=== PATIENT | female | born 1990 | race Caucasian/White ===

== ENCOUNTER 2017-02-23 14:16 | Emergency (ER) | payer OTHER ==
[~2017-02-23] VITALS: Ht 177.8 cm; Wt 61.5 kg
[2017-02-23 14:44] VITALS: BP 168/102; PULSE 77; RESP 16; TEMP 98.2; O2SAT 99
--- NOTE | 2017-02-23 16:50 | PD ---
HPI Chief Complaint: Injury Time Seen by Provider: 16:30 Travel History International Travel<30 days: No Contact w/Intl Traveler<30days: No Traveled to known affect area: No History of Present Illness HPI 27-year-old female presents to the emergency room for evaluation of left foot pain, swelling, and bruising after injuring it 2 days ago. Patient states she slipped while walking up the stairs. She inverted her ankle and has had pain to the left lateral foot since then. No other injuries. She has been able to ambulate on it. She has been taking Tylenol and Motrin without any relief in symptoms. No chronic medical conditions or daily medications. She started getting paresthesias to her left leg a few hours ago. [facility] Past Medical History Medical History: Denies Significant Hx ?: Not LMP: 1 WEEK AGO Social History Alcohol Use: Yes (occ) Tobacco Use: No Substance Use: No Allergies-Medications (Allergen,Severity, Reaction): Coded Allergies: No Known Allergies (Verified Allergy, Unknown, 02/23/17) Reported Meds & Prescriptions Reported Meds & Active Scripts Active No Active Prescriptions or Reported Medications Review of Systems Except as stated in HPI: all other systems reviewed are Neg Physical Exam Narrative GENERAL: Well-nourished, well-developed female in no acute distress. Afebrile. SKIN: Focused skin assessment warm/dry. Moderate ecchymosis of the left lateral foot. HEAD: Normocephalic. EYES: No scleral icterus. No injection or drainage. NECK: Supple, trachea midline. No JVD or lymphadenopathy. CARDIOVASCULAR: Regular rate and rhythm without murmurs, gallops, or rubs. RESPIRATORY: Breath sounds equal bilaterally. No accessory muscle use. MUSCULOSKELETAL: No cyanosis. Moderate edema of the left foot. Less than 2 second capillary refill distally. No tenderness to palpation of bilateral malleoli. Tenderness to palpation of the fifth metatarsal. 2+ dorsalis pedis pulse. Data Data Last Documented VS Vital Signs Date Time Temp Pulse Resp B/P (MAP) Pulse Ox O2 Delivery O2 Flow Rate FiO2 02/23/17 14:44 98.2 77 16 168/102 (124) 99 Orders Orders Foot, Complete ([id number]) (02/23/17 ) Crutches (02/23/17 17:22) Splint Or Brace Apply/Monitor (02/23/17 17:22) Ed Discharge Order (02/23/17 17:33) Radiology Film Requests (02/23/17 ) [facility] Medical Decision Making Medical Screen Exam Complete: Yes Emergency Medical Condition: Yes Medical Record Reviewed: Yes Differential Diagnosis Contusion, fracture, strain, sprain Narrative Course 27-year-old female presents to the emergency room for evaluation of left foot pain, swelling, and bruising after inverting it 2 days ago. She has been ambulatory. No paresthesias. Left foot is neurovascularly intact with 2+ dorsalis pedis pulse. Limited range of motion secondary to pain. Moderate edema and ecchymosis. No obvious deformity. Tenderness to palpation of the left fifth metatarsal. X-ray shows nondisplaced fracture of the left fifth metatarsal. Patient placed in a posterior short leg splint and discharged with crutches and Lortab. Told to follow-up with a endless steamer tender. Told to return for worsening symptoms. She understands and agrees to plan. Diagnosis Primary Impression: Fracture of fifth metatarsal bone Qualified Codes: S92.355A - Nondisplaced fracture of fifth metatarsal bone, left foot, initial encounter for closed fracture Referrals: Primary Care Physician Additional Instructions: Rest and drink plenty of fluids. Take Lortab as directed, as needed for pain. Do not drink alcohol or drive taking this medication. Take ibuprofen with food as directed, as needed for pain. Keep splint on and elevate. Apply ice to the affected area for 20 minutes at a time, as needed for pain and swelling. Follow-up with a primary care physician. Return to the emergency room for worsening symptoms. Med/Other Pt SpecificInfo: Prescription(s) given Scripts No Active Prescriptions or Reported Meds Disposition: 01 DISCHARGE HOME Condition: Stable Jacqueline Salinas Feb 23, 2017 16:50
--- NOTE | 2017-02-23 17:18 | RADRPT ---
EXAM DATE/TIME: 02/23/2017 17:01 [facility] COMPARISON: No previous studies available for comparison. INDICATIONS : Fall. Left foot pain. MEDICAL HISTORY : None. SURGICAL HISTORY : None. ENCOUNTER: Initial ACUITY: 2 days PAIN SCORE: 8/10 LOCATION: Left lateral FINDINGS: There is a nondisplaced fracture at the base of the fifth metatarsal. No dislocation. No other fractu res identified. CONCLUSION: 1. Nondisplaced fracture at the base of the fifth metatarsal. Jorge Moon MD on February 23, 2017 at 17:16 Board Certified Radiologist. This report was verified electronically.
[2017-02-23] MEDS ORDERED: HYDR-3516 PO (17:35)
== END 2017-02-23 18:01 | disposition home or self-care (01) ==
LOC: PHED 14:16 → PHEFT 18:01
DX: S92.355A Nondisplaced fracture of fifth metatarsal bone, left foot, initial encounter for closed fracture (principal); W10.9XXA Fall (on) (from) unspecified stairs and steps, initial encounter; Y93.01 Activity, walking, marching and hiking
CPT/HCPCS: 29515; 73630; 99283; E0113